=== PATIENT | male | born 1990 | race Caucasian/White ===

== ENCOUNTER 2021-04-25 11:48 | Emergency (ER) | payer OTHER | END 2021-04-25 12:51 | disposition home or self-care (01) | LOC: ER1 11:48 | PROVIDERS: Physician Assistant | DX: R44.3 Hallucinations, unspecified (principal); Z20.822 Contact with and (suspected) exposure to COVID-19 | CPT/HCPCS: 80307; 81001; 99284; U0002 ==

== ENCOUNTER 2021-07-28 02:55 | Emergency (ER) | payer OTHER | END 2021-07-28 07:23 | disposition home or self-care (01) | LOC: ER1 02:55 | DX: M54.50 Low back pain, unspecified (principal); F17.210 Nicotine dependence, cigarettes, uncomplicated | CPT/HCPCS: 99283; J1100; J1885; J2360 ==

== ENCOUNTER 2021-11-24 12:05 | Observation (INO) | payer OTHER ==
[~2021-11-24] VITALS: Ht 193 cm; Wt 137.0 kg
[2021-11-24 12:27] LABS: HEMOGLOBIN 16.4 gm/dl (14.0-17.5); RED BLOOD COUNT 5.37 M/UL (4.20-5.50); WHITE BLOOD COUNT 12.9 K/UL (4.5-11.0)
[2021-11-24 14:20] LABS: BUN/CREATININE RATIO 20 (0-10)
[2021-11-24] MEDS ORDERED: INVEGA3 MG PO (16:11)
[2021-11-24] MEDS ORDERED: BUPRENORPHIN-N1 EACH SL (16:11)
[2021-11-24] MEDS ORDERED: CALCIPOTRIENE120 GM TOP (16:12)
[2021-11-24] MEDS ORDERED: TEMOVATE15 GM TOP (16:13)
[2021-11-24] MEDS ORDERED: CLOBETASOL PRO118 M1 TOP (16:13)
== END 2021-11-24 18:50 | disposition left against medical advice (07) ==
LOC: ER1 12:05 → CDU 15:40 → MED SURG 4 17:10
PROVIDERS: Emergency Medicine; ADMIT Internal Medicine Infectious Disease
DX: R07.2 Precordial pain (principal); R11.0 Nausea; R06.02 Shortness of breath; R00.0 Tachycardia, unspecified; F17.210 Nicotine dependence, cigarettes, uncomplicated; Z20.822 Contact with and (suspected) exposure to COVID-19; Z79.899 Other long term (current) drug therapy; Z53.29 Procedure and treatment not carried out because of patient's decision for other reasons
CPT/HCPCS: 71045; 71275; 76705; 80053; 82550; 82553; 83605; 83690; 83735; 84443; 84484; 85025; 87040; 93005; 96374; 96375; 99285; G0378; J0456; J0696; J2405; J7030; Q9967; U0002